=== PATIENT | female | born 1990 | race African-American/Black ===

== ENCOUNTER 2017-10-26 13:04 | Emergency (ER) | payer SELFPAY ==
[2017-10-26 13:13] VITALS: TEMP 98.6; BMI 29.8
--- NOTE | 2017-10-26 13:29 | PDOC ---
History of Present Illness - General Chief Complaint: Pain, Acute Stated Complaint: VOMITING Time Seen by Provider: 10/26/17 13:29 - History of Present Illness Initial Comments: 27 year old [id number] (7w3d on LMP) with previous diagnosis of PCOS presenting with Nausea, bilious vomiting, diarrhea, and cramp-like epigastric pain for the past few 4 days. Her LMP was 09/04/17 and she had two positive home urinary preg test over the last two weeks. She states that she actually does not want the child but has no insurance coverage currently so she is waiting for a medical . She hasn't been able to keep much food down because of this non-bloody, but bilious vomiting and attempted to ingest peptobismol but wasn't able to keep that down either. She is also complaining of some whitish discharge that she states she has had during her previous pregnancys. Denies fevers, chest pain, cough, lightheadedness, or recent sick contacts. 10/26/17 13:39 Past History - Past Medical History Allergies/Adverse Reactions: Allergies Allergy/AdvReac Type Severity Reaction Status Date / Time No Known Allergies Allergy Verified 10/26/17 13:10 Home Medications: Ambulatory Orders Metoclopramide HCl [Reglan -] 10 mg PO BID PRN #120 tablet 10/26/17 Metronidazole 500 mg PO BID #14 tablet 10/26/17 - Suicide/Smoking/Psychosocial Hx Smoking History: Never smoked Drug/Substance Use Hx: No Substance Use Type: None Review of Systems - Review of Systems Constitutional: Yes: Weakness. No: Chills, Fever HEENTM: No: Blurred Vision Respiratory: No: Cough, Shortness of Breath, Stridor, Wheezing Cardiac (ROS): No: Chest Pain, Irregular Heart Rate, Chest Tightness ABD/GI: Yes: Diarrhea, Nausea, Poor Appetite, Poor Fluid Intake, Vomiting, Abdominal cramping. No: Constipated : Yes: Discharge (white discharge). No: Burning, Dysuria *Physical Exam - Vital Signs Last Vital Signs Temp Pulse Resp BP Pulse Ox 98.6 F 85 19 102/65 100 10/26/17 13:10 10/26/17 13:10 10/26/17 13:10 10/26/17 13:10 10/26/17 13:10 - Physical Exam General Appearance: Yes: Appropriately Dressed. No: Apparent Distress HEENT: positive: EOMI, SADIA, Normal Voice Neck: positive: Trachea midline, Normal Thyroid, Supple. negative: Tender, Rigid Respiratory/Chest: positive: Lungs Clear, Normal Breath Sounds. negative: Chest Tender, Respiratory Distress, Accessory Muscle Use Cardiovascular: positive: Regular Rhythm, Regular Rate. negative: Murmur Gastrointestinal/Abdominal: positive: Flat, Soft, Increased Bowel Sounds. negative: Normal Bowel Sounds, Tender Musculoskeletal: positive: Normal Inspection Extremity: positive: Normal Capillary Refill, Normal Inspection, Normal Range of Motion Integumentary: positive: Normal Color, Dry, Warm Neurologic: positive: graphics manager II-XII NML intact, Fully Oriented, Alert, Normal Mood/ Affect, Normal Response, Motor Strength 03/30 ED Treatment Course - LABORATORY CBC & Chemistry Diagram: 10/26/17 13:45 10/26/17 13:45 Medical Decision Making - Medical Decision Making 27 year old [id number] (7w3d on LMP) complaining of nausea, vomiting, and diarrhea for the last few days along with some vaginal discharge. Vaginal exam signifcant for malodorous white discharge likely BV and TVUS showing a single IUP at 7w3d. [facility] and prescription for Flagyl and Reglan. 10/26/17 14:29 *DC/Admit/Observation/Transfer Diagnosis at time of Disposition: Hyperemesis Qualifiers: Vomiting type: unspecified Nausea presence: with nausea Qualified Code(s): R11.2 - Nausea with vomiting, unspecified - Discharge Dispostion Disposition: HOME Condition at time of disposition: Improved Admit: No - Prescriptions Prescriptions: Metoclopramide HCl [Reglan -] 10 mg PO BID PRN #120 tablet PRN Reason: Nausea And/Or Vomiting Metronidazole 500 mg PO BID #14 tablet - Referrals - Patient Instructions Printed Discharge Instructions: DI for Hyperemesis Gravidarum Additional Instructions: We evaluated for nausea nad vomiting while being . We believe that tis is related to the 7w 3d we saw on ultrasound. We have prescribed you medicine to help with the nause.a We have also prescribed you some medication to treat your vaginal infection. Please use [employer] to find the coupons on these medications at [facility]. [facility] in [facility] tomorrow in order to terminate your . You must go there before you hit 8 weeks to receive financial assistance. Please return if you have new or worsening symptoms. - Post Discharge Activity
--- NOTE | 2017-10-26 13:33 | PDOC ---
Attending Attestation - HPI HPI: 10/26/17 14:54 The patient is a 27 year old female who reports her LMP was 7 weeks ago with a significant PMH of polycystic ovary syndrome who presents to the emergency department with multiple GI symptoms including nausea, vomiting, diarrhea, and epigastric cramping pain beginning approximately 4 days ago. The patient also reports being unable to keep food down during this time. She also notes a whitish vaginal discharge which she reports experiencing in previous pregnancies. LMP: 09/04/17 Allergies: NKDA <Laurent Corley - Last Filed: 10/26/17 14:56> - Resident Resident Name: Clarice Brizuela - ED Attending Attestation I have performed the following: I have examined & evaluated the patient, The case was reviewed & discussed with the resident, I agree w/resident's findings & plan, Exceptions are as noted - Physicial Exam PE: GENERAL: Awake, alert, and fully oriented, in no acute distress HEAD: No signs of trauma EYES: PERRLA, EOMI, sclera anicteric, conjunctiva clear ENT: Auricles normal inspection, hearing grossly normal, nares patent, oropharynx clear without exudates. Moist mucosa NECK: Normal ROM, supple, no lymphadenopathy, JVD, or masses LUNGS: Breath sounds equal, clear to auscultation bilaterally. No wheezes, and no crackles HEART: Regular rate and rhythm, normal S1 and S2, no murmurs, rubs or gallops ABDOMEN: Soft, nontender, normoactive bowel sounds. No guarding, no rebound. No masses EXTREMITIES: Normal range of motion, no edema. No clubbing or cyanosis. No cords, erythema, or tenderness NEUROLOGICAL: Cranial nerves II through XII grossly intact. Normal speech, normal gait SKIN: Warm, Dry, normal turgor, no rashes or lesions noted. - Medical Decision Making Pt with L adnexal tenderness on pelvic exam. Will obtain pelvic ultrasound to r/ o ectopic. Patient states she wishes to terminate the , will [facility] to [facility], as she recently lost her insurance. Will treat for BV with flagyl. <Deann Kraus - Last Filed: 10/26/17 16:25>
[2017-10-26] MEDS ORDERED: SODIUM CHLORIDE 1,000 ML IV STA (13:36)
[2017-10-26] MEDS ORDERED: ONDANSETRON 4 MG/2 ML VIAL IVPUSH ONE ×2 (13:37→17:17)
[2017-10-26] MEDS ORDERED: ONDANSETRON 4 MG/2 ML VIAL ONE ×2 (14:07→17:35)
[2017-10-26 14:13] LABS: BASOPHIL 0.3 % (0-2.0); EOSINOPHIL 0.1 % (0-4.5); MCH 29.1 pg (25.7-33.7); MEAN CELL VOLUME 88.2 fl (80-96); MEAN PLT VOLUME 7.5 fl (7.5-11.1); NEUTROPHILS 84.4 % (42.8-82.8); PLATELET COUNT 272 K/MM3 (134-434); RDW 14.2 % (11.6-15.6); WHITE BLOOD COUNT 9.9 K/mm3 (4.0-10.0)
[2017-10-26 14:43] LABS: ALBUMIN 4.3 g/dl (3.4-5.0); ALK PHOS 63 U/L (45-117); ANION GAP 12 (8-16); BILIRUBIN,TOTAL 0.4 mg/dL (0.2-1.0); CALCIUM 9.4 mg/dL (8.5-10.1); CO2 24 mmol/L (21-32); CREATININE 0.7 mg/dL (0.55-1.02); GLUCOSE,RANDOM 95 mg/dL (74-106); MAGNESIUM 2.1 mg/dL (1.8-2.4); SGOT/AST 10 U/L (15-37); SGPT/ALT 17 U/L (12-78); TOT PROT 8.2 g/dl (6.4-8.2)
[2017-10-26 15:54] LABS: URINE APPEARANCE CLOUDY; URINE BILIRUBIN NEGATIVE (NEGATIVE); URINE BLOOD NEGATIVE (NEGATIVE); URINE COLOR AMBER; URINE GLUCOSE (UA) NEGATIVE (NEGATIVE); URINE KETONE 2+ (NEGATIVE); URINE NITRITE NEGATIVE (NEGATIVE)
[2017-10-26 15:58] LABS: URINE PROTEIN 1+ (NEGATIVE)
[2017-10-26 17:03] LABS: URINE BACTERIA RARE /hpf (NONE SEEN); URINE HYALINE CAST 14 /lpf; URINE MUCUS MANY; URINE RBC 1 /hpf (0-3); URINE WBC 3 /hpf (3-5)
[2017-10-26 17:34] VITALS: BP 133/63; PULSE 70
[2017-10-27 11:07] LABS: URINE LEUK ESTERASE Negative (NEGATIVE)
== END 2017-10-26 18:26 | disposition home or self-care (01) ==
LOC: JER 13:04
PROC: 3E0337Z Introduction of Electrolytic and Water Balance Substance into Peripheral Vein, Percutaneous Approach (ICD-10-PCS; principal; 2017-10-26)
PROC: 3E033GC Introduction of Other Therapeutic Substance into Peripheral Vein, Percutaneous Approach (ICD-10-PCS; 2017-10-26)
DX: O26.891 Other specified pregnancy related conditions, first trimester (principal); O21.0 Mild hyperemesis gravidarum; Z3A.01 Less than 8 weeks gestation of pregnancy
CPT/HCPCS: 36415; 76817-TC; 80053; 81003; 81015; 83690; 83735; 84702; 84703; 85025; 87086; 99283-25